=== PATIENT | female | born 1950 | race Caucasian/White ===

== ENCOUNTER 2019-12-26 09:09 | Outpatient (CLI) | payer MEDICARE, SELFPAY ==
--- NOTE | 2019-12-26 09:13 | ECG_ITS ---
Measurements Intervals [place] Rate: 62 P: 7 ND: 140 QRS: 12 QRSD: 100 T: 22 QT: 416 QTc: 423 Interpretive Statements SINUS RHYTHM DELAYED PRECORDIAL R/S TRANSITION BASELINE ARTIFACT- I, II, III, AVR, AVL, AVF BORDERLINE ECG Electronically Signed On 12-26-2019 9:31:10 CDT by Jerad Winchester D.O.
[2019-12-26 09:39] LABS: Add Urine Microscopic? YES; Appearance Urine Clear (Clear); Bilirubin Urine Negative (Negative); Blood Urine 1+ (Negative); Color Urine Yellow (Yellow); Glucose Urine UA Negative (Negative); Ketones Urine Negative (Negative); Leukocyte Esterase Ur Negative LEU/UL (Negative); Mucus Urine Rare /lpf; Nitrate Urine Negative (Negative); Protein Urine Negative (Negative); RBC Urine 0-2 /hpf (0-2); Specific Grav Ur 1.024 (1.001-1.035); Squamous Epithelial Cell Urine Rare /hpf (Few); Urobilinogen Urine Negative mg/dL (<2.0); WBC Urine 0-3 /hpf
== END 2019-12-26 09:10 | disposition home or self-care (01) ==
LOC: ANHSURGERY 09:13
PROVIDERS: PCP Internal Medicine; Visit Provider Orthopaedic Surgery
DX: E78.00 Pure hypercholesterolemia, unspecified (principal); S83.529A Sprain of posterior cruciate ligament of unspecified knee, initial encounter; X58.XXXA Exposure to other specified factors, initial encounter
CPT/HCPCS: 81001; 87081; 93005

== ENCOUNTER 2019-12-31 00:21 | Outpatient (CLI) | payer MEDICARE, SELFPAY ==
[2019-12-31 19:34] LABS: SARS-CoV-2 RNA PCR Negative
== END 2019-12-31 00:22 | disposition home or self-care (01) ==
LOC: ANHCOVIDDT 00:21
PROVIDERS: PCP Internal Medicine; Visit Provider Orthopaedic Surgery
DX: Z01.812 Encounter for preprocedural laboratory examination (principal); Z20.828 Contact with and (suspected) exposure to other viral communicable diseases
CPT/HCPCS: 87635; C9803; U0003

== ENCOUNTER 2020-01-02 01:29 | Day surgery (SDC) | payer MEDICARE, SELFPAY ==
[2019-12-24 09:43] VITALS: BMI 29.2
[2020-01-02] VITALS (14 sets, daily range): BP systolic 90–131; BP diastolic 49–75; PULSE 61–88; RESP 12–16; TEMP 35.9–36.7; O2SAT 94–100
--- NOTE | ~2020-01-02 | XR_ITS ---
EXAMINATION: XR knee LT 2V DATE: 01/02/2020 16:30 INDICATION: Postoperative evaluation following left total knee arthroplasty. TECHNIQUE: Anteroposterior and lateral views of the left knee were obtained. COMPARISON: None. FINDINGS: Left total knee arthroplasty with no interval change in femoral or tibial components which appear to remain well seated in near anatomic alignment. The arthroplasty now includes a new patellar resurfaci ng which also appears well seated in near-anatomic alignment. No fractures identified. Skin kriss and expected postoperative subcutaneous and intra-articular gas. IMPRESSION: 1. Addition of a patellar resurfacing tree left total knee arthroplasty, negative for postoperative p urposes. Reviewed, dictated and finalized at location A. IMPRESSION: 1. Addition of a patellar resurfacing tree left total knee arthroplasty, negati ve for postoperative purposes.
--- NOTE | 2020-01-02 07:27 | WPDHPUPDATE1 ---
History and Physical Update Update Date/Time: 01/02/20 07:27 History and Physical has been reviewed, including an updated exam of the patient. There are NO changes in the patient's condition. Risks, benefits, and alternatives have been discussed and questions answered. Patient agrees to proceed with procedure.
[2020-01-02] MEDS: ACETAMINOPHEN 500 MG TABLET 1000 MG PO (11:28)
[2020-01-02] MEDS: CELECOXIB 200 MG CAPSULE PO ×2 (11:28→19:02)
[2020-01-02] MEDS: LACTATED RINGERS 1,000 ML 30 ML IV CONT ×2 (11:39→16:13)
--- NOTE | 2020-01-02 11:41 | WPDANESEPPF ---
Anes - Initial Pre Proc Eval Procedure: Operation Date: 01/02/20 13:00 Proposed Procedures p Left Knee Polyethylene Exchange And Left Patella Resurfacing - Sabino Yousif MD Date/Time: 01/02/20 11:41 Surgeon: Sabino Yousif MD Pre Op Diagnosis: Left PCL Tear Patient Data Age: 69 Gender: F Height: 5 ft 8.5 in Weight: 90.4 kg Last Vital Signs Temp 36.7 C 01/02/20 10:56 Pulse 70 01/02/20 10:56 Resp 14 01/02/20 10:56 BP 130/75 01/02/20 10:56 Pulse Ox 97 01/02/20 10:56 Allergies Allergy/AdvReac Type Severity Reaction Status Date / Time vortioxetine Allergy Intermediate NAUSEA AND Verified 01/02/20 11:10 VOMITING Home Medications Medication Instructions Recorded Confirmed Type chlorhexidine gluconate 4 % 1 applic TOPICAL ONCE #237 ml 12/04/19 01/02/20 Rx topical liquid cholecalciferol (vitamin D3) 125 125 mcg PO DAILY 12/04/19 01/02/20 History mcg (5,000 unit) capsule cyclobenzaprine 5 mg tablet 5 mg PO TID PRN 12/04/19 01/02/20 History duloxetine 60 mg capsule,delayed 60 mg PO DAILY 12/04/19 01/02/20 History release rosuvastatin 5 mg tablet 5 mg PO DAILY 12/04/19 01/02/20 History Patient hx anesthesia problems: post op nausea/vomiting Family hx anesthesia problems: none PMFSH Past Medical History Medical History Hyperlipidemia Vision loss Family History Family History Other Diabetes mellitus Family history of arthritis Family history of cardiovascular disease Family history of malignant neoplasm Hypertension Social History Social History Smoking status: Never smoker Smoking end date: 05/09/77 Alcohol intake: current Alcohol use details: STATES EXTREMILY RARE MAYBE 1 A YR ON HER BIRTHDAY Substance use: never Living arrangements: with friend(s) Spiritual care concerns: No Anes - Eval Final PreProcedure Day of Procedure 01/02/20 11:41 Patient weight: overweight Heart: regular rate and rhythm Lungs: clear to auscultation Airway: Mallampati scale class II Neurological: alert and oriented Last oral intake: >/= 8 hours ASA classification: II Emergent: no Anesthetic plan: proceed Anesthesia type and monitoring: general LMA and standard monitoring Informed Consent: The patient's anesthetic plan and its attendant risks and benefits were discussed with the patient/family/POA. Questions were solicited and answers provided to the satisfaction of the patient/family/POA.
[2020-01-02] MEDS: SCOPOLAMINE 1.5 MG PATCH TRANSDERM (12:05)
--- NOTE | 2020-01-02 13:23 | WPDANESPNB ---
Anes - Peripheral Nerve Block Date/Time: 01/02/20 13:23 I have discussed with the patient/family/POA the placement of a peripheral nerve block for post-operative pain management, including associated risks, benefits, complications, and side effects. Alternative methods of post-operative analgesia were detailed. Questions were solicited and answers provided to the satisfaction of the patient/family/POA. Time-Out: A pre-procedural Time-Out was completed immediately before starting the procedure and confirmed: Patient Identification, Site, Procedure, Patient Position and the Availability of Requisite Equipment. Clinical Indications: Acute post-operative pain management requested by the operative surgeon. Nerve Block Insertion Note Anes-nerve block: femoral left Patient position: supine Skin prep: chlorhexidine Needle: 22 gauge, stimulating, insulated echogenic needle. Needle length: 50 mm Technique: nerve stimulation lost at (mA) (0.24) Technique comment: versed 2mg fent 100mcg Injectate: bupivacaine 0.25% with epi 5 mcg/ml (30ml) Observations: tolerated well Complications: none Procedure start time:: 1314 Procedure end time:: 1321
[2020-01-02] MEDS: ceFAZolin 2 GM/D5W 50 ML 2 GM/50 ML BAG IVPB ×2 (13:37→22:40)
[2020-01-02] MEDS: GENTAMICIN BONE CEMENT REFOBACIN 1 EACH TOPICAL (15:01)
--- NOTE | 2020-01-02 16:10 | PM.OP ---
Procedure Note - Brief Procedure Note - Brief Date of procedure: 01/02/20 Pre-op diagnosis: Left PCL Tear Post-op diagnosis: same Procedure performed: LEFT TKA REVISION OF POLYETHILENE COMPONENT AND PATELLA RESURFACING. Anesthesia: GETA Surgeon: Sabino Yousif MD Estimated blood loss (mL): 50 Complications: No immediate complications Condition: stable Disposition: PACU
--- NOTE | 2020-01-02 18:17 | ADMGEN ---
This patient, Vickie Gonzalez, was admitted to Medical Room 241-01. Patient oriented to hospital policies and general routines including ID bracelet, bed and alarms, visiting hours, pain management, procedures, bathroom and other care routines, personal items, smoking policy, room service/diet, and visiting hours. Valuables list has been completed. Information on how to activate the Rapid Response Team has been discussed. Patient are encouraged to report perceived risks to care and to ask questions if they do not understand what they are told or what they should do.
[2020-01-02] MEDS: SODIUM CHLORIDE 0.9% IV 1,000 ML 125 ML IV CONT (18:22)
[2020-01-02] MEDS: DOCUSATE SODIUM 100 MG CAPSULE PO (19:02)
--- NOTE | 2020-01-02 21:52 | OP_ITS ---
DATE OF PROCEDURE: 01/02/2020 PREOPERATIVE DIAGNOSIS: Left knee PCL rupture. POSTOPERATIVE DIAGNOSIS: Left knee PCL rupture. PROCEDURE: Left knee revision of polyethylene implant and patellar resurfacing. ANESTHESIA: General. COMPLICATIONS: None. INDICATIONS: This is a 69-year-old female, who underwent knee replacement surgery approximately 6 months ago. She then developed an insufficiency to her posterior cruciate ligament, demonstrate signs of instability from this insufficiency and despite rehabilitation and PT and concentration on quadriceps strengthening, the patient failed to progress and was complaining of instability and discomfort. So, she was indicated for revision of the polyethylene implant and patella resurfacing. DESCRIPTION OF PROCEDURE: The patient was taken to the operating room in stable condition, placed in the supine position. General anesthesia was induced and the left lower extremity was prepped and draped sterilely from the toes to the thigh. The old skin incision was used. The tourniquet was inflated. Incision was made down to the subcutaneous tissues and medial and lateral flaps were developed. Arthrotomy was made. The patella then was everted. The first thing was performed was measurement of thickness of the [place] patella. It measured approximately 25 mm. Once that was performed, then the patellar cutting guide was placed and approximately 8 mm of bone was removed from the patella. Once that was performed, then the thickness was measured again and there was approximately between 13 mm and 15 mm of bone. The patellar drill guide then was placed. The measurement was approximately 34 for the patellar size. After that was performed, the drill guide was used to drill the 3 fulls for the patella implant. Once that was performed, then a size 34 trial patellar implant was placed and it was flushed with the cut. The measurement now the thickness of patella was at 25 mm. Once that was performed, then the original polyethylene component of the knee replacement was removed. The surfaces of the femoral and tibial components were inspected and there was no gross loosening. A size 14 poly type implant then was placed eventually and this offered good stability in the AP plane. The knee came out to full extension. There was good stability in the varus valgus plane. There was no tilt of the patella and there was no excessive rollback in flexion. The trial component was removed and the knee joint was irrigated thoroughly with both sterile Betadine, sterile water for approximately 3 minutes. The polyethylene component then was placed and locked and it was stable. Then, the patellar implant was cemented into place. Once cement was dry, the knee was taken through range of motion once again and found to be very stable. The patella tracked without any tilt. The implant was very stable in the AP plane, also with varus valgus stress. There was no excessive rollback in flexion. The tourniquet then was deflated. The bleeders were cauterized. The arthrotomy was approximated with #0 Vicryl suture, subcutaneous tissues with 2-0 Vicryl, and the skin was approximated with kriss. Wounds were washed, placed sterile dressing. The patient was extubated and sent to recovery. Ksenia I MT: Yael
[2020-01-03] MEDS: oxyCODONE/ACETAMINOPHEN 5-325 MG TABLET 1 TABLET PO ×3 (00:31→12:25)
[2020-01-03 03:36] VITALS: BP 113/61; PULSE 53; RESP 16; TEMP 36.1; O2SAT 100
[2020-01-03] MEDS: ceFAZolin 2 GM/D5W 50 ML 2 GM/50 ML BAG IVPB ×2 (05:56→14:43)
[2020-01-03 06:01] LABS: Basophils Percent Auto 0.4 % (0.2-1.2); Eosinophils Percent Auto 0.1 % (0-4.4); Hematocrit 36.5 % (37.0-47.0); Hemoglobin 12.1 g/dL (12.0-15.0); Immature Granulocyte Absolute 0.03 K/mm3 (0.00-0.031); Immature Granulocyte Percent A 0.3 % (0-0.5); Lymphocytes Absolute Auto 1.33 K/mm3 (0.9-3.2); Lymphocytes Percent Auto 13.1 % (18.3-44.2); Mean Corpuscular HGB Conc 33.2 g/dl (32-36); Mean Corpuscular Hemoglobin 31.4 pg (26-34); Mean Corpuscular Volume 94.8 fl (80-100); Mean Platelet Volume 9.4 fl (7.4-10.4); Monocytes Absolute Auto 0.7 K/mm3 (0.1-0.6); Monocytes Percent Auto 7.2 % (2.6-8.5); Neutrophils Percent Auto 78.9 % (45.5-73.1); Platelet Count Result 391 k/mm3 (150-375); Red Blood Count 3.85 M/mm3 (4.2-5.4); White Blood Count 10.2 K/mm3 (4.5-10.0)
[2020-01-03 06:14] LABS: Anion Gap 7 mmol/L (8-16); Blood Urea Nitrogen 19 mg/dL (7-17); Calcium 8.4 mg/dL (8.4-10.2); Carbon Dioxide 25 mmol/L (22-30); Chloride 105 mmol/L (98-107); Estimated CRCL calculation 78 ml/min; Estimated Glomerular Filt Rate > 60; Glucose 92 mg/dL (65-105); Potassium 3.8 mmol/L (3.4-5.0); Sodium 137 mmol/L (137-145)
--- NOTE | 2020-01-03 07:47 | P.PNAN_ITS ---
Anes - Prog Note Post-Op Date/Time: 01/03/20 07:47 Cardiovascular status: normal Respiratory status: normal Airway patency: baseline Mental status: baseline Post-Op hydration status: normal Vital Signs: Last Vital Signs Temp 36.1 C L 01/03/20 03:36 Pulse 53 L 01/03/20 03:36 Resp 16 01/03/20 03:36 BP 113/61 01/03/20 03:36 Pulse Ox 100 01/03/20 03:36 Pain Score (VAS): 0/10. Patient resting in bed at time of assessment, appears comfortable. No additional issues or concerns addressed at time of assessment. PCT at bedside. I/O: Intake & Output 01/02/20 01/02/20 01/03/20 15:59 23:59 07:59 Intake Total 50 630 450 Balance 50 630 450 Laboratory Tests 01/03/20 05:10 01/03/20 05:10 01/03/20 01/03/20 05:10 05:10 WBC 10.2 H RBC 3.85 L Hgb 12.1 Hct 36.5 L MCV 94.8 MCH 31.4 MCHC 33.2 RDW 13.0 Plt Count 391 H MPV 9.4 Immature Gran % (Auto) 0.3 Neut % (Auto) 78.9 H Lymph % (Auto) 13.1 L [place] % (Auto) 7.2 Eos % (Auto) 0.1 Baso % (Auto) 0.4 Lymph # (Auto) 1.33 [place] # (Auto) 0.7 H Eos # (Auto) 0.0 Baso # (Auto) 0.0 Abs Immat Gran (auto) 0.03 Absolute Neuts (auto) 8.0 H Absolute Nucleated RBC 0.0 Nucleated RBC % 0.0 Sodium 137 Potassium 3.8 Chloride 105 Carbon Dioxide 25 Anion Gap 7 L BUN 19 H Creatinine 0.70 Estim Creat Clear Calc 78 Estimated GFR > 60 Glucose 92 Calcium 8.4 Post-procedural complaints: none Patient Feedback: Patient satisfied with anesthetic care.
--- NOTE | 2020-01-03 09:02 | PM.PNORT ---
Progress Note: A&P Assessment and Plan (1) Tear of knee, posterior cruciate ligament: Qualifiers: Encounter type: subsequent encounter Laterality: left Qualified Code(s): S83.522D - Sprain of posterior cruciate ligament of left knee, subsequent encounter Code(s): S83.529A - Sprain of posterior cruciate ligament of unspecified knee, initial encounter Status: Acute Assessment and Plan: POD #1: Left knee revision of polyethylene implant and patellar resurfacing Continue PT/OT. WBAT. Walker. Fall Risk. Continue pain control. Ice. No pillows under knee. SCDs. Incentive Spirometry. DVT prophylaxis with Aspirin Monitor dressing. Change prior to discharge. Dispo: Home, possibly requiring home health pending patient approval. Subjective Subjective Date/Time Seen: 01/03/20 09:02 POD#1: Left knee revision of polyethylene implant and patellar resurfacing No new complaints. Feeling well. Sitting up in chair eating. Working well with PT/OT. Review of Systems Constitutional: Constitutional: Denies chills, Denies fatigue, Denies fever(s), Denies night sweats and Denies weakness Cardiovascular: Cardiovascular: Denies chest pain, Denies leg edema, Denies lightheadedness and Denies palpitations Respiratory: Respiratory: Denies cough, Denies dyspnea and Denies wheezing Gastrointestinal: Gastrointestinal: Denies abdominal pain, Denies diarrhea, Denies nausea and Denies vomiting Genitourinary: Genitourinary: Reports nocturia and Denies dysuria Musculoskeletal: Musculoskeletal: Reports arthralgias (left knee ) and Reports joint swelling (left knee ) Exam Const: General: comfortable and no acute distress Resp: Effort & Inspection: normal respiratory effort Cardio: Rate: regular rate Rhythm: regular rhythm GI: Inspection: non-distended Skin: General skin exam: normal color Wounds: wounds noted (Incision left knee C/D/I ) Neuro: Cognition (Neuro): normal cognition Other: Mild drop foot LLE at baseline due to back surgery Extrem: Right lower extremity: normal to inspection, full ROM, normal capillary refill and knee Details: normal to inspection; no tenderness and no swelling Left lower extremity: knee (Incision c/d/i ) Details: tenderness (diffuse ), swelling (mild ) and abnormal ROM (limited due to recent surgery, extensor mechinism intact ); no ecchymosis Other: Incision left knee c/d/i. 2+pedal pulses. Ankle dorsiflexion/plantarflexion mildly limited due to drop foot which is a baseline finding s/p back surgery. Psych: Mental Status: mental status grossly normal Affect: normal affect Objective Data Vital Signs Vital Signs: Vital Signs - 24 hr 01/02/20 10:56 01/02/20 16:13 01/02/20 16:25 Temperature 36.7 C 36.7 C Pulse Rate 70 88 79 Respiratory Rate 14 12 13 Blood Pressure 130/75 114/63 128/72 Pulse Oximetry 97 97 98 01/02/20 16:40 01/02/20 16:55 01/02/20 17:10 Temperature Pulse Rate 78 75 71 Respiratory Rate 14 16 12 Blood Pressure 128/68 127/72 131/71 Pulse Oximetry 98 96 94 01/02/20 17:25 01/02/20 17:40 01/02/20 17:55 Temperature Pulse Rate 67 70 67 Respiratory Rate 13 12 12 Blood Pressure 119/65 118/68 109/55 L Pulse Oximetry 96 96 94 01/02/20 18:15 01/02/20 18:30 01/02/20 19:00 Temperature 36.3 C L 36.4 C L 36.4 C Pulse Rate 67 62 67 Respiratory Rate 14 14 14 Blood Pressure 108/58 L 113/62 90/74 L Pulse Oximetry 98 97 98 01/02/20 20:00 01/02/20 23:36 01/03/20 03:36 Temperature 36.1 C L 35.9 C L 36.1 C L Pulse Rate 73 61 53 L Respiratory Rate 16 16 16 Blood Pressure 110/53 L 111/49 L 113/61 Pulse Oximetry 99 100 100 Intake/Output Intake/Output: Intake & Output 12/31/19 01/01/20 01/02/20 01/03/20 23:59 23:59 23:59 23:59 Intake Total 680 450 Output Total 250 Balance 680 200 Meds/Results Medications: Active Medications Generic Name Dose Route Start Last Admin Trade Name Freq PRN Reason Stop Dose Admin A
[2020-01-03 09:23] VITALS: O2SAT 98
[2020-01-03] MEDS: CELECOXIB 200 MG CAPSULE PO (09:38)
[2020-01-03] MEDS: DOCUSATE SODIUM 100 MG CAPSULE PO (09:38)
[2020-01-03] MEDS: ASPIRIN 325 MG ENTERIC TABLET 650 MG PO (09:48)
[2020-01-03 10:00] VITALS: BP 113/54; PULSE 62; RESP 17; TEMP 36.3; O2SAT 99
--- NOTE | 2020-01-03 13:18 | PM.DS ---
DS: Admitting Diagnosis Admitting Diagnosis Admitting Diagnosis: Left PCL Tear DS: Discharge Diagnosis Discharge Diagnosis (1) Tear of knee, posterior cruciate ligament: Qualifiers: Encounter type: subsequent encounter Laterality: left Qualified Code(s): S83.522D - Sprain of posterior cruciate ligament of left knee, subsequent encounter Code(s): S83.529A - Sprain of posterior cruciate ligament of unspecified knee, initial encounter Status: Acute Assessment and Plan: POD #1: Left knee revision of polyethylene implant and patellar resurfacing Continue PT/OT. WBAT. Walker. Fall Risk. Continue pain control. Ice. No pillows under knee. SCDs. Incentive Spirometry. DVT prophylaxis with Aspirin Monitor dressing. Change prior to discharge. Dispo: Home, possibly requiring home health pending patient approval. DS: Summary Hospital Course Reason for hospitalization: Left knee revision of polyethylene implant and patellar resurfacing. Hospital Course: 69 year old female admitted s/p left knee revision of polyethylene implant and patellar resurfacing. Patient progressed well with PT/OT. She had a stable hospitalization and her pain was well controlled. She was deemed safe to go home at this time. She will be discharged without home health as her granddaughter is a physical therapist and will be working with her at home. She will also change her dressing in 5 day. Status at Discharge Cognitive/behavioral status at discharge: stable. Functional status at discharge: uses cane/walker Overall status at discharge: patient is progressing back to baseline Time Spent with Patient Time attestation: Total time spent providing and/or coordinating discharge services: Exam Const: General: comfortable and no acute distress Resp: Effort & Inspection: normal respiratory effort Cardio: Rate: regular rate Rhythm: regular rhythm GI: Inspection: non-distended Skin: General skin exam: normal color Wounds: wounds noted (Incision left knee C/D/I ) Neuro: Cognition (Neuro): normal cognition Other: Mild drop foot LLE at baseline due to back surgery Extrem: Right lower extremity: normal to inspection, full ROM, normal capillary refill and knee Details: normal to inspection; no tenderness and no swelling Left lower extremity: knee (Incision c/d/i ) Details: tenderness (diffuse ), swelling (mild ) and abnormal ROM (limited due to recent surgery, extensor mechinism intact ); no ecchymosis Other: Incision left knee c/d/i. 2+pedal pulses. Ankle dorsiflexion/plantarflexion mildly limited due to drop foot which is a baseline finding s/p back surgery. Psych: Mental Status: mental status grossly normal Affect: normal affect DS: Data Data Completed and Pending Labs on day of discharge: Labs from last 24 hours 01/03/20 01/03/20 05:10 05:10 WBC 10.2 H RBC 3.85 L Hgb 12.1 Hct 36.5 L MCV 94.8 MCH 31.4 MCHC 33.2 RDW 13.0 Plt Count 391 H MPV 9.4 Immature Gran % (Auto) 0.3 Neut % (Auto) 78.9 H Lymph % (Auto) 13.1 L Ray % (Auto) 7.2 Eos % (Auto) 0.1 Baso % (Auto) 0.4 Lymph # (Auto) 1.33 Ray # (Auto) 0.7 H Eos # (Auto) 0.0 Baso # (Auto) 0.0 Abs Immat Gran (auto) 0.03 Absolute Neuts (auto) 8.0 H Absolute Nucleated RBC 0.0 Nucleated RBC % 0.0 Sodium 137 Potassium 3.8 Chloride 105 Carbon Dioxide 25 Anion Gap 7 L BUN 19 H Creatinine 0.70 Estim Creat Clear Calc 78 Estimated GFR > 60 Glucose 92 Calcium 8.4 Discharge Plan Discharge Patient Disposition: Home, Self-Care Discharge Instructions: Remove the Scopolamine patch that was placed behind your ear in 72 hours or less. Wash your hands after touching. Post Op Total Knee Replacement Instructions Dr. Sabino Yousif ?Your dressing will be changed prior to your discharge. You will be sent home with one additional dressing to be changed in 5 days by your family member. Please ens
[2020-01-03 14:00] VITALS: BP 108/49; PULSE 69; RESP 16; TEMP 36.1; O2SAT 100
== END 2020-01-03 15:50 | disposition home or self-care (01) ==
LOC: ANHSURGERY 11:48 → ANH2MED 18:00
PROVIDERS: PCP Internal Medicine; Visit Provider Orthopaedic Surgery
PROC: (CPT 27487; principal; 2020-01-02 13:00)
DX: M23.52 Chronic instability of knee, left knee (principal); Z87.891 Personal history of nicotine dependence
CPT/HCPCS: 27487; 36415; 73560; 80048; 85025; 97110; 97116; 97161; 97165; A9270; C1713; J0171; J0690; J1100; J2250; J2270; J2370; J2405; J2704; J2795; J3010; J7030; J7120

== ENCOUNTER 2020-09-15 12:30 | Outpatient (RCR) | payer MEDICARE, SELFPAY ==
--- NOTE | 2020-08-14 10:52 | PTOPEVAL ---
INITIAL PHYSICAL THERAPY EVALUATION and PLAN OF CARE Thank you for referring Vickie Gonzalez to [facility].? Vickie is scheduled to be seen for physical therapy? 2x/week for 4 weeks. Please review, sign, date and return this plan of care JUSTIN. I agree with and certify that the following plan of care is medically necessary. Referring Physician Date Admitting Provider: Attending Provider: Sabino Yousif MD Referring Provider: *PT Outpatient Evaluation Start: 08/13/20 09:55 Freq: Status: Active Protocol: Document 08/13/20 09:55 SARAH (Rec: 08/13/20 11:07 SARAH [id number]) Therapy Assessment Status Assessment Status Assessment Status Evaluation Outpatient Past Medical History Past Medical History Source of Past Medical History Recalled from Previous Visit, Confirmed with Patient/Family Neurological History Hx Other Neurological Disorders Yes: DROP FOOT - LT WEARS BRACE Cardiovascular History Hx Hypercholesterolemia Yes Hx Other Cardiac Disorders Yes: PT DENIES CARDIAC SYMPTOMS Respiratory History Hx Respiratory Disorders No Significant History Gastrointestinal History Hx Gastrointestinal Disorders No Significant History Genitourinary History Hx Genitourinary Disorders No Significant History Musculoskeletal History Hx Arthritis Yes Hx Joint Replacement Yes: LT KNEE SEPTEMBER 2018 Hx Spinal Surgery Yes: L5-S1 Hx Other Musculoskeletal Disorders Yes: LT POSTERIOR CRUCIATE LIGAMENT TEAR Hematological History Hx Hematological Disorders No Significant History Endocrine History Hx Endocrine Disorders No Significant History HEENT History Hx Other HEENT Disorders Yes: GLASSES Integumentary History Hx Shingles Yes: HX OF RT BREAST TO CENTER BACK Reproductive History Hx Hysterectomy Yes Psychosocial History Hx Anxiety Yes Hx Depression Yes Pain History History of Any Previous or Ongoing No Significant History Instance of Pain Anesthesia History Hx Post-Op Nausea/Vomiting Yes: STATES DID NOT HAVE WITH LTKA SEPTEMBER 2018 Evaluation Information Problem Diagnosis s/p L knee polyexchange with patellar resurfacing Onset 01/02/20 Subjective Information Immediately after surgery felt Query Text:As Reported By Patient/ well - when she became more Family active - increase in discomfort. Increased pain all around the knee - posteriorly, anteriorly,
--- NOTE | 2020-08-20 08:13 | PCPTNOTE ---
Patient called & cancelled scheduled appointment this date due to family emergency.
--- NOTE | 2020-09-15 13:33 | PTOPEVAL ---
PHYSICAL THERAPY DISCHARGE SUMMARY Thank you for referring Vickie Gonzalez to [facility].? Vickie was seen x 7 treatments in PT. She has met all goals set and ready for discharge from PT to [facility]. I agree with Vickie's discharge from PT. Referring Physician Date Admitting Provider: Attending Provider: Sabino Yousif MD Referring Provider: Therapy Assessment Status Assessment Status Assessment Status Discharge Evaluation Information Problem Diagnosis s/p L knee polyexchange with patellar resurfacing Subjective Information Vickie states that she was with Query Text:As Reported By Patient/ grandchildren over the Family weekend - increase in activity level - lots of walking. No knee pain - just muscular discomfort from walking. Lungs feeling better - able to breath easier. Medication still disagreeing with her a little. Improved sleeping ability. No difficulty with doing stairs at home now. Pain Assessment Self Report Pain Assessment Left Knee(s) Reported Pain Level 0 Lowest Pain Intensity 0 Greatest Pain Intensity 0 Lower Extremity Range of Motion Knee Range of Motion Left Knee Flexion Range of Motion - Active 120 Knee Extension Range of Motion - Active 0 Query Text: Lower Extremity Muscle Strength Testing Hip Strength Left Hip Flexion Strength 5 Normal Hip Extension Strength 5 Normal Hip Abduction Strength 5 Normal Hip Medial Rotation Strength 5 Normal Hip Lateral Rotation Strength 5 Normal Knee Strength Left Knee Flexion Strength 5 Normal Knee Extension Strength 5 Normal Muscle Length Testing Muscle Length Testing Left Hamstring Length -20 Query Text:(90 - 90 Position) Muscle Length Testing Comments L ankle dorsiflexion ~ 5 deg Extremity Circumference Assessment Circumference Assessment Location Left Body Part Knee Site Descriptor ([place]) mid patella Circumference Comments L 44 cm Balance Assessment Time Up Go (TUG) Assistive Devices None Comments 8.56 5 Time Sit to Stand Time in Seconds 12.56 5 Time Sit to Stand Comments no use of UE'a Query Text:Normative Data: If Greater Than 15 Seconds, 74% Increase Risk for Recurrent Falls Gait Assessment Gait Pattern Assessment Other Gait Observations no obvious gait deviations - quick pace present PT Clinical Summary Clinical Summary Adonis
== END 2020-09-16 13:34 | disposition home or self-care (01) ==
LOC: ANHHIPT 12:30
PROVIDERS: PCP Internal Medicine; Visit Provider Orthopaedic Surgery
DX: T84.093A Other mechanical complication of internal left knee prosthesis, initial encounter (principal)
CPT/HCPCS: 97014; 97110; 97140; 97162; G0283